=== PATIENT | male | born 1970 | race Caucasian/White ===

== ENCOUNTER 2017-03-13 09:37 | Inpatient (IN) | payer OTHER ==
[2017-03-13 10:09] VITALS: BMI 28.6
--- NOTE | 2017-03-13 14:35 | HP ---
COWS - Scale Resting Pulse: 1= ID [id number] Sweatin= Chills/Flushing Restless Observation: 3= Extraneous Movement Pupil Size: 2= Moderately Dilated Bone or Joint Aches: 4=Acute Joint/Muscle Pain Runny Nose/ Eye Tearin= Nasal Congestion GI Upset > 30mins: 1= Stomach Cramp Tremor Observation: 2= Slight Tremor Visible Yawning Observation: 2= >3x During Session Anxiety or Irritability: 2=Irritable/Anxious Goose Flesh Skin: 0=Smooth Skin COWS Score: 19 Admission ROS BHS - HPI Chief Complaint: DETOX TX FOR HEROIN DEPENDENCE.."I WANNA GET DETOXED". Allergies/Adverse Reactions: Allergies Allergy/AdvReac Type Severity Reaction Status Date / Time No Known Allergies Allergy Verified 03/13/17 12:14 History of Present Illness: 46 Y/O MALE WITH A HX OF HEROIN DEPENDENCE SEEKING DETOX [place] Exam Limitations: No Limitations - Ebola screening Have you traveled outside of the country in the last 21 days: No Have you had contact with anyone from an Ebola affected area: No Have you been sick,other than usual withdrawal symptoms: No Do you have a fever: No - Review of Systems Constitutional: Chills, Loss of Appetite, Night Sweats, Changes in sleep EENT: reports: No Symptoms Reported Respiratory: reports: No Symptoms reported Cardiac: reports: Lightheadedness GI: reports: Constipated, Nausea, Vomiting : reports: Dysuria Musculoskeletal: reports: Back Pain, Joint Pain, Muscle Pain Integumentary: reports: Bruising (ON BACK OF LEFT HAND--SCRATCH STERN.) Neuro: reports: Headache, Numbness, Tingling Endocrine: reports: No Symptoms Reported Hematology: reports: No Symptoms Reported Psychiatric: reports: Orientated x3, Anxious, Depressed Other Systems: Reviewed and Negative Patient History - Patient Medical History Hx Anemia: No Hx Asthma: No Hx Chronic Obstructive Pulmonary Disease (COPD): No Hx Cancer: No Hx Cardiac Disorders: No Hx Congestive Heart Failure: No Hx Hypertension: No Hx Pacemaker: No HX Cerebrovascular Accident: No Hx Seizures: No Hx Dementia: No Hx Diabetes: No Hx Gastrointestinal Disorders: No Hx Liver Disease: No Hx Genitourinary Disorders: No Hx Sexually Transmitted Disorders: No (DENIES) Hx Renal Disease (ESRD): No Hx Thyroid Disease: No Hx Human Immunodeficiency Virus (HIV): No (DENIES) Hx Hepatitis C: No Hx Depression: No Hx Suicide Attempt: No (DENIES) Hx Schizophrenia: No - Patient Surgical History Past Surgical History: Yes Hx Neurologic Surgery: No Hx Cataract Extraction: No Hx Cardiac Surgery: No Hx Lung Surgery: No Hx Breast Surgery: No Hx Breast Biopsy: No Hx Abdominal Surgery: No Hx Appendectomy: No Hx Cholecystectomy: No Hx Genitourinary Surgery: No Hx Section: No Hx Orthopedic Surgery: Yes (LAMINECTOMY L4-5 AT 29 YRS OLD) Anesthesia Reaction: No - PPD History Previous Implant?: Yes Documented Results: Negative w/proof Implanted On Prior [facility] Admission?: Yes Date: 11/01/14 Results: 0 mm PPD to be Administered?: Yes - Reproductive History Patient is a Female of Child Bearing Age (11 -55 yrs old): No (MALE) - Smoking Cessation Smoking history: Current every day smoker Have you smoked in the past 12 months: Yes Aproximately how many cigarettes per day: 20 Hx Chewing Tobacco Use: No Initiated information on smoking cessation: Yes 'Breaking Loose' booklet given: 03/13/17 - Substance & Tx. History Hx Alcohol Use: No Hx Substance Use: Yes (HEROIN/COCAINE) Substance Use Type: Cocaine, Heroin Hx Substance Use Treatment: Yes - Substances Abused Heroin Route: Inhalation Frequency: Daily Amount used: 10 bags Age of first use: 29 Date of Last Use: 03/13/17 Crack Route: Smoking Frequency: 1-3 times last 30 days Amount used: $100 Age of first use: 24 Date of Last Use: 03/11/17 Family Disease History - Family Disease History Family Disease History: Diabetes: Mother, Heart Disease: Father Admission Physical Exam [facility] - Vital Signs Vital Signs: Vital Signs - 24 hr 03/13/17 10:06 Temperature 97.6 F Pulse Rate 83 Respiratory 18 Rate Blood Pressure 121/66 - Physical General Appearance: Yes: Moderate Distress, Irritable, Anxious HEENTM: Yes: EOMI, Normocephalic, JEREMIAH, Pharynx Normal, Nasal Congestion Respiratory: Yes: Chest Non-Tender, Lungs Clear, Normal Breath Sounds, No Respiratory Distress Neck: Yes: Supple, Trachea in good position Breast: Yes: Breast Exam Deferred Cardiology: Yes: Regular Rhythm, Regular Rate, S1, S2 Abdominal: Yes: Normal Bowel Sounds, Non Tender, Soft Genitourinary: Yes: Other (N/C) Back: Yes: Within Normal Limits Musculoskeletal: Yes: full range of Motion, Gait Steady Extremities: Yes: Normal Range of Motion, Non-Tender 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 intact, Fully Oriented, Alert Integumentary: Yes: Dry, Warm Lymphatic: Yes: Within Normal Limits - Diagnostic (1) Cocaine dependence Current Visit: Yes Status: Acute Qualifiers: Substance use status: uncomplicated Qualified Code(s): F14.20 - Cocaine dependence, uncomplicated (2) Opioid dependence with withdrawal Current Visit: Yes Status: Acute Cleared for Admission [facility] - Detox or Rehab [facility] Level of Care: Medically Managed Detox Regimen/Protocol: Methadone [facility] Breath Alcohol Content Breath Alcohol Content: 0 Urine Drug Screen - Results Drug Screen Negative: No Urine Drug Screen Results: LUIS-Cocaine, OPI-Opiates
[2017-03-13] MEDS ORDERED: IBUPROFEN 400 MG TABLET (FP) PO PRN (15:02)
[2017-03-13] MEDS ORDERED: diphenhydrAMINE HCL 50 MG CAPSULE PO PRN (15:02)
[2017-03-13] MEDS ORDERED: MENTHOL/PHENOL 1 EACH UD MM PRN (15:02)
[2017-03-13] MEDS ORDERED: guaiFENesin/D-METHORPHAN HB 10 ML UNIT-DOSE CUPS PO PRN (15:02)
[2017-03-13] MEDS ORDERED: MAGNESIUM CITRATE 300 ML BOTTLE PO PRN (15:02)
[2017-03-13] MEDS ORDERED: ACETAMINOPHEN 325 MG TABLET (FP) PO PRN (15:02)
[2017-03-13] MEDS ORDERED: NICOTINE POLACRILEX 4 MG GUM BUC PRN (15:02)
[2017-03-13] MEDS ORDERED: MAGNESIUM HYDROX 2400MG/30ML ORAL SUSPENSION 30 ML CUP PO PRN (15:02)
[2017-03-13] MEDS ORDERED: MAG HYDROX/AL HYDROX/SIMETH 30 ML UNIT-DOSE CUP PO PRN (15:02)
[2017-03-13] MEDS ORDERED: P-EPHED 60MG/TRIPROLIDI 2.5MG TABLET PO PRN (15:02)
[2017-03-13] MEDS ORDERED: LOPERAMIDE HCL 2 MG CAPSULE PO PRN (15:02)
[2017-03-13] MEDS ORDERED: METHADONE HCL 10 MG TABLET (FOR DETOX USE ONLY) PO ONE ×2 (15:21→23:00)
[2017-03-13] MEDS: diazePAM 5 MG TABLET PO PRN ×2 (15:37→22:14)
[2017-03-13] MEDS: NICOTINE 21 MG/24 HOURS TOPICAL PATCH TD SCH (15:37)
[2017-03-13 17:45] LABS: URINE APPEARANCE CLEAR; URINE BILIRUBIN NEGATIVE (NEGATIVE); URINE COLOR YELLOW; URINE GLUCOSE (UA) NEGATIVE (NEGATIVE); URINE KETONE NEGATIVE (NEGATIVE); URINE LEUK ESTERASE NEGATIVE (NEGATIVE); URINE NITRITE NEGATIVE (NEGATIVE); URINE PROTEIN NEGATIVE (NEGATIVE); URINE UROBILINOGEN NEGATIVE E.U./dl (0.2-1.0)
[2017-03-13 18:29] LABS: URINE BLOOD 1+ (NEGATIVE)
[2017-03-13 18:34] LABS: URINE MUCUS RARE; URINE RBC 7 /hpf (0-3); URINE WBC <1 /hpf (3-5)
[2017-03-13] MEDS ORDERED: THIAMINE HCL 100 MG TABLET (FP) PO SCH (22:00)
[2017-03-14] MEDS: diazePAM 5 MG TABLET PO PRN (09:08)
[2017-03-14] MEDS ORDERED: PRENATAL VITAMINS W/ FOLIC ACID TABLET (FP) PO SCH (10:00)
[2017-03-14] MEDS ORDERED: METHADONE HCL 10 MG TABLET (FOR DETOX USE ONLY) PO ONE (10:00)
[2017-03-14 10:12] LABS: MCH 30.6 pg (25.7-33.7); MCHC 33.6 g/dl (32.0-35.9); MEAN CELL VOLUME 91.1 fl (80-96); MEAN PLT VOLUME 9.1 fl (7.5-11.1); PLATELET COUNT 244 K/MM3 (134-434); RDW 13.5 % (11.9-15.9); WHITE BLOOD COUNT 11.6 K/mm3 (4.0-10.0)
[2017-03-14 10:16] LABS: ALBUMIN 3.6 g/dl (3.4-5.0); ANION GAP 7 (8-16); CALCIUM 9.2 mg/dL (8.5-10.1); CO2 28 mmol/L (21-32); COCKROFT - GAULT 119.13; CREATININE 0.9 mg/dL (0.7-1.3); GLUCOSE,RANDOM 128 mg/dL (74-106); SGOT/AST 10 U/L (15-37); SGPT/ALT 19 U/L (12-78); TOT PROT 7.3 g/dl (6.4-8.2)
[2017-03-14 10:18] LABS: ALK PHOS 51 U/L (45-117); BILIRUBIN,TOTAL 0.2 mg/dL (0.2-1.0)
[2017-03-14] MEDS: NICOTINE 21 MG/24 HOURS TOPICAL PATCH TD SCH (10:35)
--- NOTE | 2017-03-14 10:40 | PN ---
S COWS - Scale Resting Pulse: 0= MD 80 or Below Sweatin= Chills/Flushing Restless Observation: 3= Extraneous Movement Pupil Size: 1= Pupils >than Normal Bone or Joint Aches: 2= Severe Diffuse Aches Runny Nose/ Eye Tearin= Runny Nose/Eyes GI Upset > 30mins: 3= Vomiting/Diarrhea Tremor Observation of Outstretched Hands: 2= Slight Tremor Visible Yawning Observation: 1= 1-2x During Session Anxiety or Irritability: 2=Irritable/Anxious Goose Flesh Skin: 0=Smooth Skin COWS Score: 17 S Progress Note (SOAP) Subjective: ALERT,IRRITABLE,ANXIOUS,INTERRUPTED SLEEP,TREMOR,PAIN IN THE BODY AND BACK Objective: 03/14/17 10:36 Vital Signs Temperature 98.0 F 03/14/17 09:25 Pulse Rate 75 03/14/17 09:25 Respiratory Rate 18 03/14/17 09:25 Blood Pressure 146/91 03/14/17 09:25 O2 Sat by Pulse Oximetry (%) 03/14/17 10:37 EKG NSR,NORMAL ECG Laboratory Last Values WBC 11.6 K/mm3 (4.0-10.0) H 03/14/17 06:00 RBC 4.72 M/mm3 (4.00-5.60) 03/14/17 06:00 Hgb 14.5 GM/dL (11.7-16.9) 03/14/17 06:00 Hct 43.0 % (35.4-49) 03/14/17 06:00 MCV 91.1 fl (80-96) 03/14/17 06:00 MCHC 33.6 g/dl (32.0-35.9) 03/14/17 06:00 RDW 13.5 % (11.9-15.9) 03/14/17 06:00 Plt Count 244 K/MM3 (134-434) 03/14/17 06:00 MPV 9.1 fl (7.5-11.1) 03/14/17 06:00 Sodium 139 mmol/L (136-145) 03/14/17 06:00 Potassium 4.5 mmol/L (3.5-5.1) 03/14/17 06:00 Chloride 104 mmol/L (98-107) 03/14/17 06:00 Carbon Dioxide 28 mmol/L (21-32) 03/14/17 06:00 Anion Gap 7 (8-16) L 03/14/17 06:00 BUN 17 mg/dL (7-18) D 03/14/17 06:00 Creatinine 0.9 mg/dL (0.7-1.3) D 03/14/17 06:00 Creat Clearance w eGFR > 60 (>60) 03/14/17 06:00 Random Glucose 128 mg/dL (74-106) H 03/14/17 06:00 Calcium 9.2 mg/dL (8.5-10.1) 03/14/17 06:00 Total Bilirubin 0.2 mg/dL (0.2-1.0) D 03/14/17 06:00 AST 10 U/L (15-37) L D 03/14/17 06:00 ALT 19 U/L (12-78) D 03/14/17 06:00 Alkaline Phosphatase 51 U/L (45-117) D 03/14/17 06:00 Total Protein 7.3 g/dl (6.4-8.2) 03/14/17 06:00 Albumin 3.6 g/dl (3.4-5.0) 03/14/17 06:00 Urine Color Yellow 03/13/17 17:00 Urine Appearance Clear 03/13/17 17:00 Urine pH 5.0 (5.0-8.0) 03/13/17 17:00 Ur Specific [place] 1.020 (1.005-1.025) 03/13/17 17:00 Urine Protein Negative (NEGATIVE) 03/13/17 17:00 Urine Glucose (UA) Negative (NEGATIVE) 03/13/17 17:00 Urine Ketones Negative (NEGATIVE) 03/13/17 17:00 Urine Blood 1+ (NEGATIVE) H 03/13/17 17:00 Urine Nitrite Negative (NEGATIVE) 03/13/17 17:00 Urine Bilirubin Negative (NEGATIVE) 03/13/17 17:00 Urine Urobilinogen Negative E.U./dl (0.2-1.0) 03/13/17 17:00 Ur Leukocyte Esterase Negative (NEGATIVE) 03/13/17 17:00 Urine RBC 7 /hpf (0-3) 03/13/17 17:00 Urine WBC <1 /hpf (3-5) 03/13/17 17:00 Urine Mucus Rare 03/13/17 17:00 Assessment: 03/14/17 10:38 WITHDRAWAL SYMPTOM Plan: CONTINUE DETOX,ENCOURAGE ORAL FLUID,REPEAT CBC,BMP IN AM,INITIAL CBC WBC IS 11.600,INITIAL GLUCOSE IS 128
--- NOTE | 2017-03-14 12:38 | EKG ---
Test Reason : Blood Pressure : / mmHG Vent. Rate : 078 BPM Atrial Rate : 078 BPM P-R Int : 170 ms QRS Dur : 106 ms QT Int : 380 ms P-R-T Axes : 068 077 055 degrees QTc Int : 433 ms NORMAL SINUS RHYTHM NORMAL ECG NO PREVIOUS ECGS AVAILABLE Confirmed by DOMINGO HARPER, TRACY ([id number]) on 03/14/2017 12:38:35 PM Referred By: Confirmed By:TRACY LANE MD
[2017-03-14 17:35] VITALS: BP 125/84; PULSE 72; TEMP 98.3
--- NOTE | 2017-03-15 07:19 | PN ---
S Progress Note Note: LATE ENTRY: INFORMED CLIENT SIGNED OUT AMA LAST NIGT 03/14/17. CLIENT DID NOT COMPLETE TXMENT DESPITE VERBAL ENCOURAGEMENT TO DO SO.
--- NOTE | 2017-03-15 07:23 | DS ---
[facility] Detox Discharge Summary Admission Date: 03/13/17 Discharge Date: 03/14/17 - History Present History: Cocaine Dependence, Opioid Dependence Pertinent Past History: DENIES - Physical Exam Results Vital Signs: Vital Signs Temperature 98.3 F 03/14/17 17:35 Pulse Rate 72 03/14/17 17:35 Respiratory Rate 18 03/14/17 17:35 Blood Pressure 125/84 03/14/17 17:35 O2 Sat by Pulse Oximetry (%) Pertinent Admission Physical Exam Findings: WITHDRAWAL SX'S - Medication Discharge Medications: Ambulatory Orders NK [No Known Home Medication] 10/30/14 - Diagnosis (1) Cocaine dependence Status: Chronic Qualifiers: Substance use status: uncomplicated Qualified Code(s): F14.20 - Cocaine dependence, uncomplicated (2) Opioid dependence with withdrawal Status: Chronic (3) Herniation of intervertebral disc between L4 and L5 Status: Chronic - AMA Did Patient Leave Against Medical Advice: Yes
[2017-03-15] MEDS ORDERED: METHADONE HCL 5 MG TABLET (FOR DETOX USE ONLY) PO ONE (10:00)
[2017-03-16] MEDS ORDERED: METHADONE HCL 5 MG TABLET (FOR DETOX USE ONLY) PO ONE (10:00)
[2017-03-17] MEDS ORDERED: METHADONE HCL 10 MG TABLET (FOR DETOX USE ONLY) PO ONE (10:00)
[2017-03-18] MEDS ORDERED: METHADONE HCL 5 MG TABLET (FOR DETOX USE ONLY) PO ONE (06:00)
== END 2017-03-14 08:26 | disposition left against medical advice (07) | DRG 770 ==
LOC: YASAS 09:37 → Y3N 13:40
PROVIDERS: ADMIT Internal Medicine; ATTEND Internal Medicine
PROC: HZ2ZZZZ Detoxification Services for Substance Abuse Treatment (ICD-10-PCS; principal; 2017-03-13)
DX: F11.23 Opioid dependence with withdrawal (principal); F14.20 Cocaine dependence, uncomplicated; F17.210 Nicotine dependence, cigarettes, uncomplicated; M51.26 Other intervertebral disc displacement, lumbar region
CPT/HCPCS: 36415; 80053; 81003; 81015; 85027; 86593; 93005; 93010